=== PATIENT | male | born 1945 | race Caucasian/White ===

== ENCOUNTER 2019-03-20 12:10 | Emergency (ER) | payer MEDICARE ==
[~2019-03-20] VITALS: Ht 185.4 cm; Wt 132.7 kg
[2019-03-20] MEDS ORDERED: normal saline 1000ML IV soln IVB ONE (13:30)
[2019-03-20] MEDS ORDERED: ondansetron/PF 4mg/2ml inj IV ONE (13:30)
[2019-03-20] MEDS ORDERED: morphine 4 MG/ML inj SYRINge IV PRN (13:30)
[2019-03-20 14:27] LABS: BASOPHILS # (AUTO) 0.1 X10'3 (0-0.2); BASOPHILS % (AUTO) 0.4 % (0-1); EOSINOPHILS # (AUTO) 0.2 X10'3 (0-0.9); EOSINOPHILS % (AUTO) 1.3 % (0-6); HEMATOCRIT 43.8 % (42.0-52.0); HEMOGLOBIN 14.7 g/dl (14.0-17.9); LYMPHOCYTES # (AUTO) 2.9 X10'3 (1.1-4.8); LYMPHOCYTES % (AUTO) 18.2 % (21-51); MEAN CORPUSCULAR HEMOGLOBIN 29.2 PG (27.0-31.0); MEAN CORPUSCULAR HGB CONC 33.6 g/dL (33.0-36.5); MONOCYTES # (AUTO) 1.4 X10'3 (0-0.9); MONOCYTES % (AUTO) 9.1 % (2-12); NEUTROPHILS # (AUTO) 11.1 X10'3 (1.8-7.7); PLATELET COUNT 212 X10'3 (140-440); RED BLOOD COUNT 5.04 X10'6 (4.70-6.10); RED CELL DISTRIBUTION WIDTH 14.5 % (11.5-14.5); WHITE BLOOD COUNT 15.7 X10'3 (4.5-11.0)
[2019-03-20 14:27] LABS: CLARITY,URINE CLEAR (Clear); COLOR,URINE YELLOW (Yellow); GLUCOSE, URINE NEGATIVE (Neg); KETONES,URINE NEGATIVE (Neg); LEUKOCYTE ESTERASE ,URINE NEGATIVE (Neg); NITRITES, URINE NEGATIVE (Neg); OCCULT BLOOD,URINE LARGE (Neg); PH,URINE 5.5 (4.8-8.0); PROTEIN,URINE NEGATIVE (Neg); UROBILINOGEN,URINE 0.2 E.U/dL (0.2-1.0)
[2019-03-20 14:28] LABS: UA COLLECTION TYPE CLN CATCH MIDSTREAM
[2019-03-20 14:39] LABS: ALANINE AMINOTRANSFERASE 20 U/L (12-78); ALBUMIN 3.9 G/DL (3.4-5.0); ALBUMIN/GLOBULIN RATIO 1.1 (1.1-1.5); ALKALINE PHOSPHATASE 69 IU/L (46-116); ANION GAP 12 (8-16); ASPARTATE AMINO TRANSFERASE 22 U/L (10-37); BILIRUBIN,TOTAL 0.4 MG/DL (0.1-1.0); BLOOD UREA NITROGEN 14 MG/DL (7-18); BUN/CREATININE RATIO 10.5 (5.4-32.0); CALCIUM 8.7 MG/DL (8.5-10.1); CHLORIDE 106 MMOL/L (99-107); CREATININE 1.33 MG/DL (0.60-1.10); GLUCOSE 98 MG/DL (70-104); LIPASE 61 U/L (73-393); POTASSIUM 3.9 MMOL/L (3.5-5.1); SODIUM 141 MMOL/L (135-145); TOTAL PROTEIN 7.4 G/DL (6.4-8.2); eGFR 53 ML/MIN
[2019-03-20 14:48] LABS: BACTERIA,URINE FEW /HPF (Neg); SQUAMOUS EPITHELIAL CELL,UR NONE SEEN /LPF (FEW); WBC,URINE 0-4 /HPF (0-4)
[2019-03-20] MEDS ORDERED: ketorolac tromethamine 15mg/ml inj. IV ONE (14:50)
[2019-03-20] MEDS ORDERED: HYDR-4384 PO (15:31)
[2019-03-20] MEDS ORDERED: FLO0.4C PO (15:31)
[2019-03-20 15:58] VITALS: BP 162/84
== END 2019-03-20 16:02 | disposition home or self-care (01) ==
LOC: ER 12:11
DX: N20.0 Calculus of kidney (principal); R19.7 Diarrhea, unspecified; Z79.899 Other long term (current) drug therapy
CPT/HCPCS: 36415; 74176; 80053; 81001; 83690; 85025; 96361; 96374; 96375; 99284; J1885; J2270; J2405; J7030

== ENCOUNTER 2019-06-30 17:04 | Emergency (ER) | payer MEDICARE ==
[~2019-06-30] VITALS: Ht 185.4 cm; Wt 122.7 kg
[2019-06-30] MEDS ORDERED: ketorolac trometh. 30mg/ml inj. IV ONE (17:15)
[2019-06-30] MEDS ORDERED: normal saline 1000ML IV soln IVB ONE (17:15)
[2019-06-30] MEDS ORDERED: ondansetron/PF 4mg/2ml inj IV ONE (17:15)
[2019-06-30 17:27] LABS: CLARITY,URINE CLEAR (Clear); COLOR,URINE YELLOW (Yellow); GLUCOSE, URINE NEGATIVE (Neg); KETONES,URINE 15 mg/dl (Neg); LEUKOCYTE ESTERASE ,URINE NEGATIVE (Neg); NITRITES, URINE NEGATIVE (Neg); OCCULT BLOOD,URINE LARGE (Neg); PROTEIN,URINE 100 mg/dl (Neg); UROBILINOGEN,URINE 0.2 E.U/dL (0.2-1.0)
[2019-06-30 17:28] LABS: UA COLLECTION TYPE VOIDED
[2019-06-30 17:32] LABS: BACTERIA,URINE NONE SEEN /HPF (Neg); MUCUS STRANDS FEW /LPF (Neg); RBC,URINE 0-2 /HPF (0-2); SQUAMOUS EPITHELIAL CELL,UR FEW /LPF (FEW); URIC ACID CRYSTALS 1+ /HPF (NEGATIVE); WBC,URINE 0-4 /HPF (0-4)
[2019-06-30] MEDS: morphine 4 MG/ML inj SYRINge IV PRN ×2 (17:42→18:12)
[2019-06-30 17:43] LABS: BASOPHILS % (AUTO) 0.3 % (0-1); EOSINOPHILS # (AUTO) 0.1 X10'3 (0-0.9); EOSINOPHILS % (AUTO) 0.6 % (0-6); HEMATOCRIT 46.4 % (42.0-52.0); HEMOGLOBIN 15.1 g/dl (14.0-17.9); LYMPHOCYTES # (AUTO) 1.3 X10'3 (1.1-4.8); LYMPHOCYTES % (AUTO) 9.6 % (21-51); MEAN CORPUSCULAR HEMOGLOBIN 28.5 PG (27.0-31.0); MEAN CORPUSCULAR HGB CONC 32.4 g/dL (33.0-36.5); MEAN CORPUSCULAR VOLUME 87.9 FL (78-98); MEAN PLATELET VOLUME 10.3 FL (7.4-10.4); MONOCYTES # (AUTO) 1.2 X10'3 (0-0.9); MONOCYTES % (AUTO) 8.4 % (2-12); NEUTROPHILS % (AUTO) 81.1 % (42-75); PLATELET COUNT 189 X10'3 (140-440); RED BLOOD COUNT 5.28 X10'6 (4.70-6.10); RED CELL DISTRIBUTION WIDTH 14.8 % (11.5-14.5); WHITE BLOOD COUNT 13.6 X10'3 (4.5-11.0)
[2019-06-30 17:58] LABS: ALANINE AMINOTRANSFERASE 25 U/L (12-78); ALBUMIN 4.1 G/DL (3.4-5.0); ALBUMIN/GLOBULIN RATIO 1.1 (1.1-1.5); ALKALINE PHOSPHATASE 74 IU/L (46-116); ANION GAP 12 (8-16); ASPARTATE AMINO TRANSFERASE 22 U/L (10-37); BILIRUBIN,TOTAL 0.5 MG/DL (0.1-1.0); BLOOD UREA NITROGEN 26 MG/DL (7-18); BUN/CREATININE RATIO 16.6 (5.4-32.0); CALCIUM 9.2 MG/DL (8.5-10.1); CHLORIDE 106 MMOL/L (99-107); CREATININE 1.57 MG/DL (0.60-1.10); GLUCOSE 128 MG/DL (70-104); SODIUM 141 MMOL/L (135-145); TOTAL PROTEIN 7.8 G/DL (6.4-8.2); eGFR 44 ML/MIN
[2019-06-30] MEDS ORDERED: FLO0.4C PO (18:21)
[2019-06-30] MEDS ORDERED: ONDA4TAB12 PO (18:21)
[2019-06-30] MEDS ORDERED: HYDR-3965 PO (18:21)
[2019-06-30 18:29] VITALS: BP 162/86
== END 2019-06-30 18:35 | disposition home or self-care (01) ==
LOC: ER 17:04
DX: N20.0 Calculus of kidney (principal); F17.210 Nicotine dependence, cigarettes, uncomplicated; Z87.442 Personal history of urinary calculi; Z79.899 Other long term (current) drug therapy
CPT/HCPCS: 36415; 74176; 80053; 81001; 85025; 96374; 96375; 99284; J1885; J2270; J2405; J7030

== ENCOUNTER 2019-08-26 11:14 | Emergency (ER) | payer MEDICARE ==
[~2019-08-26] VITALS: Ht 185.4 cm; Wt 121.2 kg
[~2019-08-26 11:14] MED LIST: ONDA4TAB12 PO
[2019-08-26 11:19] VITALS: BP 151/70
[2019-08-26] MEDS ORDERED: ondansetron/PF 4mg/2ml inj IV ONE (11:40)
[2019-08-26] MEDS ORDERED: normal saline 1000ML IV soln IVB ONE (11:40)
[2019-08-26] MEDS ORDERED: morphine 4 MG/ML inj SYRINge IV ONE ×3 (11:40→13:55)
[2019-08-26 12:09] LABS: BASOPHILS # (AUTO) 0.1 X10'3 (0-0.2); BASOPHILS % (AUTO) 0.4 % (0-1); EOSINOPHILS # (AUTO) 0.1 X10'3 (0-0.9); EOSINOPHILS % (AUTO) 1.2 % (0-6); HEMATOCRIT 39.7 % (42.0-52.0); LYMPHOCYTES # (AUTO) 1.3 X10'3 (1.1-4.8); LYMPHOCYTES % (AUTO) 10.3 % (21-51); MEAN CORPUSCULAR HEMOGLOBIN 28.7 PG (27.0-31.0); MEAN CORPUSCULAR HGB CONC 32.7 g/dL (33.0-36.5); MEAN CORPUSCULAR VOLUME 87.9 FL (78-98); MEAN PLATELET VOLUME 10.5 FL (7.4-10.4); MONOCYTES % (AUTO) 8.1 % (2-12); NEUTROPHILS # (AUTO) 9.8 X10'3 (1.8-7.7); PLATELET COUNT 182 X10'3 (140-440); RED BLOOD COUNT 4.52 X10'6 (4.70-6.10); RED CELL DISTRIBUTION WIDTH 15.4 % (11.5-14.5); WHITE BLOOD COUNT 12.3 X10'3 (4.5-11.0)
[2019-08-26 12:19] LABS: ALANINE AMINOTRANSFERASE 21 U/L (12-78); ALBUMIN 3.5 G/DL (3.4-5.0); ALBUMIN/GLOBULIN RATIO 1.1 (1.1-1.5); ALKALINE PHOSPHATASE 65 IU/L (46-116); ANION GAP 11 (8-16); ASPARTATE AMINO TRANSFERASE 18 U/L (10-37); BILIRUBIN,TOTAL 0.4 MG/DL (0.1-1.0); BLOOD UREA NITROGEN 19 MG/DL (7-18); BUN/CREATININE RATIO 14.8 (5.4-32.0); CALCIUM 8.7 MG/DL (8.5-10.1); CHLORIDE 108 MMOL/L (99-107); CREATININE 1.28 MG/DL (0.60-1.10); GLUCOSE 120 MG/DL (70-104); POTASSIUM 3.6 MMOL/L (3.5-5.1); SODIUM 143 MMOL/L (135-145); TOTAL CARBON DIOXIDE 24.2 MMOL/L (24-32); TOTAL PROTEIN 6.7 G/DL (6.4-8.2); eGFR 55 ML/MIN
[2019-08-26 12:38] LABS: CLARITY,URINE SLIGHTLY CLOUDY (Clear); COLOR,URINE YELLOW (Yellow); GLUCOSE, URINE NEGATIVE (Neg); KETONES,URINE TRACE mg/dl (Neg); LEUKOCYTE ESTERASE ,URINE NEGATIVE (Neg); NITRITES, URINE NEGATIVE (Neg); OCCULT BLOOD,URINE LARGE (Neg); PROTEIN,URINE 30 mg/dl (Neg); UROBILINOGEN,URINE 0.2 E.U/dL (0.2-1.0)
[2019-08-26 12:39] LABS: UA COLLECTION TYPE CLN CATCH MIDSTREAM
[2019-08-26 12:46] LABS: BACTERIA,URINE FEW /HPF (Neg); COARSE GRANULAR CAST 0-3 /LPF (NEGATIVE); HYALINE CASTS 0-3 /LPF (NEGATIVE); MUCUS STRANDS MODERATE /LPF (Neg); SQUAMOUS EPITHELIAL CELL,UR NONE SEEN /LPF (FEW); TRANSITIONAL EPI CELLS,URINE FEW /HPF; URIC ACID CRYSTALS 3+ /HPF (NEGATIVE); WBC,URINE 0-4 /HPF (0-4)
[2019-08-26] MEDS ORDERED: ketorolac tromethamine 15mg/ml inj. IV ONE (13:55)
== END 2019-08-26 15:36 | disposition home or self-care (01) ==
LOC: ER 11:15
DX: N20.0 Calculus of kidney (principal); Z79.899 Other long term (current) drug therapy
CPT/HCPCS: 36415; 80053; 81001; 85025; 96374; 96375; 96376; 99284; J1885; J2270; J2405; J7030

== ENCOUNTER 2019-11-28 19:03 | Emergency (ER) | payer MEDICARE ==
[~2019-11-28] VITALS: Ht 185.4 cm; Wt 111.4 kg
[2019-11-28 19:31] LABS: BASOPHILS # (AUTO) 0.1 X10'3 (0-0.2); BASOPHILS % (AUTO) 0.6 % (0-1); EOSINOPHILS # (AUTO) 0.3 X10'3 (0-0.9); EOSINOPHILS % (AUTO) 2.6 % (0-6); HEMATOCRIT 41.2 % (42.0-52.0); HEMOGLOBIN 13.6 g/dl (14.0-17.9); LYMPHOCYTES % (AUTO) 17.8 % (21-51); MEAN CORPUSCULAR HEMOGLOBIN 29.2 PG (27.0-31.0); MEAN CORPUSCULAR VOLUME 88.4 FL (78-98); MEAN PLATELET VOLUME 10.5 FL (7.4-10.4); MONOCYTES # (AUTO) 1.2 X10'3 (0-0.9); MONOCYTES % (AUTO) 10.3 % (2-12); NEUTROPHILS # (AUTO) 7.8 X10'3 (1.8-7.7); NEUTROPHILS % (AUTO) 68.7 % (42-75); PLATELET COUNT 177 X10'3 (140-440); RED BLOOD COUNT 4.66 X10'6 (4.70-6.10); RED CELL DISTRIBUTION WIDTH 15.6 % (11.5-14.5); WHITE BLOOD COUNT 11.4 X10'3 (4.5-11.0)
[2019-11-28 19:32] LABS: CLARITY,URINE CLEAR (Clear); COLOR,URINE YELLOW (Yellow); GLUCOSE, URINE NEGATIVE (Neg); KETONES,URINE NEGATIVE (Neg); LEUKOCYTE ESTERASE ,URINE NEGATIVE (Neg); NITRITES, URINE NEGATIVE (Neg); OCCULT BLOOD,URINE MODERATE (Neg); PROTEIN,URINE 30 mg/dl (Neg); UROBILINOGEN,URINE 0.2 E.U/dL (0.2-1.0)
[2019-11-28] MEDS ORDERED: ondansetron/PF 4mg/2ml inj IV ONE (19:35)
[2019-11-28] MEDS ORDERED: ketorolac trometh. 30mg/ml inj. IV ONE (19:35)
[2019-11-28] MEDS ORDERED: morphine 4 MG/ML inj SYRINge IV ONE (19:40)
[2019-11-28 19:41] LABS: UA COLLECTION TYPE CLN CATCH MIDSTREAM
[2019-11-28 19:44] LABS: ALANINE AMINOTRANSFERASE 26 U/L (12-78); ALBUMIN/GLOBULIN RATIO 1.2 (1.1-1.5); ALKALINE PHOSPHATASE 72 IU/L (46-116); ANION GAP 9 (8-16); ASPARTATE AMINO TRANSFERASE 17 U/L (10-37); BILIRUBIN,TOTAL 0.4 MG/DL (0.1-1.0); BLOOD UREA NITROGEN 24 MG/DL (7-18); BUN/CREATININE RATIO 21.4 (5.4-32.0); CALCIUM 9.3 MG/DL (8.5-10.1); CHLORIDE 105 MMOL/L (99-107); CREATININE 1.12 MG/DL (0.60-1.10); GLUCOSE 129 MG/DL (70-104); POTASSIUM 3.9 MMOL/L (3.5-5.1); SODIUM 139 MMOL/L (135-145); TOTAL CARBON DIOXIDE 24.7 MMOL/L (24-32); TOTAL PROTEIN 7.4 G/DL (6.4-8.2); eGFR 64 ML/MIN
[2019-11-28 19:45] LABS: LIPASE 66 U/L (73-393)
[2019-11-28 19:53] LABS: SQUAMOUS EPITHELIAL CELL,UR FEW /LPF (FEW)
[2019-11-28 19:58] LABS: MUCUS STRANDS MODERATE /LPF (Neg); URIC ACID CRYSTALS 3+ /HPF (NEGATIVE); WBC,URINE 0-4 /HPF (0-4)
[2019-11-28 19:59] LABS: BACTERIA,URINE FEW /HPF (Neg)
[2019-11-28] MEDS ORDERED: HYDR-4353 PO (20:29)
[2019-11-28] MEDS ORDERED: ONDA4TAB6 PO (20:29)
[2019-11-28] MEDS ORDERED: KETO10TA2 PO (20:29)
[2019-11-28] MEDS ORDERED: TADA20TA PO (20:29)
[2019-11-28 21:07] VITALS: BP 169/98
== END 2019-11-28 21:10 | disposition home or self-care (01) ==
LOC: ER 19:03
DX: N18.9 Chronic kidney disease, unspecified (principal); N20.0 Calculus of kidney; N13.4 Hydroureter; N13.39 Other hydronephrosis; Z79.899 Other long term (current) drug therapy
CPT/HCPCS: 36415; 74176; 80053; 81001; 83690; 85025; 96374; 96375; 99284; J1885; J2270; J2405

== ENCOUNTER → 2020-11-19 | Day surgery (SDC) | payer MEDICARE ==
[2020-11-13 15:49] LABS: BASOPHILS # (AUTO) 0.1 X10'3 (0-0.2); BASOPHILS % (AUTO) 0.5 % (0-1); EOSINOPHILS # (AUTO) 0.5 X10'3 (0-0.9); EOSINOPHILS % (AUTO) 4.5 % (0-6); LYMPHOCYTES # (AUTO) 2.7 X10'3 (1.1-4.8); LYMPHOCYTES % (AUTO) 23.6 % (21-51); MEAN CORPUSCULAR HEMOGLOBIN 29.8 PG (27.0-31.0); MEAN CORPUSCULAR HGB CONC 32.7 g/dL (33.0-36.5); MEAN CORPUSCULAR VOLUME 91.1 FL (78-98); MONOCYTES # (AUTO) 1.1 X10'3 (0-0.9); MONOCYTES % (AUTO) 9.7 % (2-12); NEUTROPHILS % (AUTO) 61.7 % (42-75); PRE OP HEMATOCRIT 42.5 % (42.0-52.0); PRE OP HEMOGLOBIN 13.9 g/dL (14.0-17.9); PRE OP PLATELET COUNT 210 X10'3 (140-440); RED BLOOD COUNT 4.66 X10'6 (4.70-6.10); RED CELL DISTRIBUTION WIDTH 14.3 % (11.5-14.5)
[2020-11-13 16:01] LABS: ALBUMIN 3.7 G/DL (3.4-5.0); ALBUMIN/GLOBULIN RATIO 1.1 (1.1-1.5); ALKALINE PHOSPHATASE 74 IU/L (46-116); BLOOD UREA NITROGEN 23 MG/DL (7-18); CALCIUM 8.5 MG/DL (8.5-10.1); CHLORIDE 111 MMOL/L (99-107); CREATININE 1.15 MG/DL (0.60-1.10); PRE OP ALT 25 U/L (30-65); PRE OP ANION GAP 6 (8-16); PRE OP AST 17 U/L (10-37); PRE OP BILIRUB, TOTAL 0.3 MG/DL (0.0-1.0); PRE OP GLUCOSE 93 MG/DL (70-104); PRE OP POTASSIUM 4.1 MMOL/L (3.4-5.1); PRE OP SODIUM 144 MMOL/L (135-145); TOTAL CARBON DIOXIDE 26.6 MMOL/L (24-32); eGFR 62 ML/MIN
[2020-11-13 16:16] LABS: CLARITY,URINE CLEAR (Clear); COLOR,URINE YELLOW (Yellow); UA COLLECTION TYPE CLN CATCH MIDSTREAM
[2020-11-13 16:17] LABS: GLUCOSE, URINE NEGATIVE (Neg); KETONES,URINE NEGATIVE (Neg); NITRITES, URINE NEGATIVE (Neg); OCCULT BLOOD,URINE NEGATIVE (Neg); PH,URINE 6.5 (4.8-8.0); PROTEIN,URINE TRACE mg/dl (Neg)
[2020-11-13 16:18] LABS: LEUKOCYTE ESTERASE ,URINE NEGATIVE (Neg); UROBILINOGEN,URINE 0.2 E.U/dL (0.2-1.0)
[2020-11-13 16:29] LABS: HYALINE CASTS 0-3 /LPF (NEGATIVE); MUCUS STRANDS FEW /LPF (Neg); SQUAMOUS EPITHELIAL CELL,UR FEW /LPF (FEW)
[2020-11-13 16:30] LABS: BACTERIA,URINE NONE SEEN /HPF (Neg); RBC,URINE 0-2 /HPF (0-2); TRANSITIONAL EPI CELLS,URINE FEW /HPF; WBC,URINE 0-4 /HPF (0-4)
[~2020-11-19] VITALS: Ht 185.4 cm; Wt 123.4 kg
[2020-11-19] VITALS (12 sets, daily range): BP systolic 127–208; BP diastolic 66–103
[~2020-11-19] MED LIST changes: +BUPIVAcaine/PF 2.5mg/ml (0.25%) 10ml vial ONE; +CLOP75TA34 PO; +LISI20TA28 PO; -ONDA4TAB12 PO; +ROSU40TA PO; +acetaminophen 1,000mg/100ml IV 100 ML IV ONE; +ceFAZolin inj. 3,000 MG in normal saline 100ml IV soln 100 ML IV ONE; +dexamethasone sod phosphate 4mg/ml inj. ONE; +famotidine 20mg tablet PO ONE; +fentaNYL/PF 50MCG/1 ML 2ML syringe ONE; +hydrALAZINE 20mg/ml inj. IV PRN; +labetalol 20mg/4ml (5mg/ml) syringe IV PRN; +meperidine/PF 25mg/ml syringe IV PRN; +midazolam 1 mg/ML 2ml injection ONE; +morphine 2 MG/ML inj. syringe IV PRN; +morphine 4 MG/ML inj SYRINge IV PRN; +ondansetron/PF 4mg/2ml inj IV PRN; +ondansetron/PF 4mg/2ml inj ONE; +proCHLORperazine 10 MG/2 ml inj IV PRN; +propofol inj 20 ML IV ONE; +ringers solution, lacted 1,000 ML IV SCH; +rocuronium 10mg/ml inj IV ONE; +sevoflurane 250ml liquid IH ONE; +sugammadex 200mg/2ml injection IV ONE
--- NOTE | 2020-11-19 10:07 | NUR ---
PT. STATES HE TAKES HIS LISINOPRIL ONLY WHEN HE NEEDS IT.
--- NOTE | 2020-11-19 15:25 | NUR ---
Received from OR via [facility] , accompanied by Anesthesiologist LOIDA and report given by Anesthesiolgist. PATIENT WITH 20G PIV IN RIGHT UE RUNNING LR AT 100. 10L MASK ON WITH 100% SATRUATIONS. 3 ABDOMINAL LAP SITES PRESENT AND ARE CDI. Addendum: 11/19/20 at 1536 by Adeel Estrella RN, RN Amended: Links added.
[2020-11-19] MEDS: meperidine/PF 25mg/ml syringe IV PRN ×3 (15:41→16:15)
--- NOTE | 2020-11-19 17:49 | NUR ---
BLADDER SCAN REVEAL 500+ CC OF URINE. PATIENT WISHES TO ATTEMPT VOIDING AGAIN BEFORE CATHETER IS PLACED. Addendum: 11/19/20 at 1844 by Adeel Estrella RN, RN Amended: Links added.
--- NOTE | 2020-11-19 18:40 | NUR ---
ALL DC INSTRUCTIONS COVERED WITH PATIENT AND SPOUSE. ALL QUESTIONS ANSWERED. VSS. DENIES NEED FOR FURTHER PAIN MEDS. PATIENT WTIH BERGER CATHETER PLACED WITH 600 URINE RETURNED. CHANGED OVER TO LEG BAG. INSTUCTIONS GIVEN TO SPOUSE AND PATIENT WELL INSTRUCTIONS TO KEEP CPAP ON UNLESS WALKING OR EATING FOR 24 HOURS. EXPLAINED RATIONALE. IV TAKEN OUT WITHOUT COMPLICATIONS. TAKEN OUT VIA WHEELCHAIR TO PERSONAL VEHICLE. Addendum: 11/19/20 at 1843 by Adeel Estrella RN, RN Amended: Links added.
== END | disposition home or self-care (01) ==
LOC: PAS 09:12
PROVIDERS: ATTEND Surgery
DX: K40.91 Unilateral inguinal hernia, without obstruction or gangrene, recurrent (principal); I10 Essential (primary) hypertension; F17.210 Nicotine dependence, cigarettes, uncomplicated; G47.30 Sleep apnea, unspecified; I47.1 Supraventricular tachycardia; E78.5 Hyperlipidemia, unspecified; K21.9 Gastro-esophageal reflux disease without esophagitis; Z20.822 Contact with and (suspected) exposure to COVID-19; Z79.899 Other long term (current) drug therapy; Z79.01 Long term (current) use of anticoagulants; Z72.89 Other problems related to lifestyle; Z95.820 Peripheral vascular angioplasty status with implants and grafts; Z87.442 Personal history of urinary calculi
CPT/HCPCS: 36415; 49651; 80053; 81001; 82948; 85025; 93005; C1781; C9399; J0131; J0360; J0690; J1100; J2175; J2250; J2270; J2405; J2704; J3010; J3490; J7120; U0003; U0005; Z7506; Z7508; Z7512; A4215; A4618

== ENCOUNTER 2022-04-19 16:53 | Emergency (ER) | payer MEDICARE ==
[~2022-04-19] VITALS: Ht 185.4 cm; Wt 126.4 kg
[~2022-04-19 16:53] MED LIST changes: -BUPIVAcaine/PF 2.5mg/ml (0.25%) 10ml vial ONE; -acetaminophen 1,000mg/100ml IV 100 ML IV ONE; -ceFAZolin inj. 3,000 MG in normal saline 100ml IV soln 100 ML IV ONE; -dexamethasone sod phosphate 4mg/ml inj. ONE; -famotidine 20mg tablet PO ONE; -fentaNYL/PF 50MCG/1 ML 2ML syringe ONE; -hydrALAZINE 20mg/ml inj. IV PRN; -labetalol 20mg/4ml (5mg/ml) syringe IV PRN; -meperidine/PF 25mg/ml syringe IV PRN; -midazolam 1 mg/ML 2ml injection ONE; -morphine 2 MG/ML inj. syringe IV PRN; -morphine 4 MG/ML inj SYRINge IV PRN; -ondansetron/PF 4mg/2ml inj IV PRN; -ondansetron/PF 4mg/2ml inj ONE; -proCHLORperazine 10 MG/2 ml inj IV PRN; -propofol inj 20 ML IV ONE; -ringers solution, lacted 1,000 ML IV SCH; -rocuronium 10mg/ml inj IV ONE; -sevoflurane 250ml liquid IH ONE; -sugammadex 200mg/2ml injection IV ONE
[2022-04-19 17:43] LABS: BASOPHILS # (AUTO) 0.1 X10'3 (0-0.2); BASOPHILS % (AUTO) 0.4 % (0-1); EOSINOPHILS # (AUTO) 0.6 X10'3 (0-0.9); EOSINOPHILS % (AUTO) 4.1 % (0-6); HEMATOCRIT 44.3 % (42.0-52.0); HEMOGLOBIN 14.7 g/dl (14.0-17.9); LYMPHOCYTES # (AUTO) 3.2 X10'3 (1.1-4.8); LYMPHOCYTES % (AUTO) 22.8 % (21-51); MEAN CORPUSCULAR HEMOGLOBIN 29.1 PG (27.0-31.0); MEAN CORPUSCULAR HGB CONC 33.1 g/dL (33.0-36.5); MEAN CORPUSCULAR VOLUME 87.9 FL (78-98); MEAN PLATELET VOLUME 9.3 FL (7.4-10.4); MONOCYTES # (AUTO) 1.3 X10'3 (0-0.9); NEUTROPHILS % (AUTO) 63.7 % (42-75); PLATELET COUNT 219 X10'3 (140-440); RED BLOOD COUNT 5.05 X10'6 (4.70-6.10); RED CELL DISTRIBUTION WIDTH 14.6 % (11.5-14.5); WHITE BLOOD COUNT 14.1 X10'3 (4.5-11.0)
[2022-04-19 17:51] LABS: CLARITY,URINE CLEAR (Clear); COLOR,URINE YELLOW (Yellow); GLUCOSE, URINE NEGATIVE (Neg); KETONES,URINE NEGATIVE (Neg); LEUKOCYTE ESTERASE ,URINE NEGATIVE (Neg); NITRITES, URINE NEGATIVE (Neg); OCCULT BLOOD,URINE SMALL (Neg); PROTEIN,URINE TRACE mg/dl (Neg); UROBILINOGEN,URINE 0.2 E.U/dL (0.2-1.0)
[2022-04-19 17:54] LABS: ALANINE AMINOTRANSFERASE 20 U/L (12-78); ALBUMIN 3.9 G/DL (3.4-5.0); ALBUMIN/GLOBULIN RATIO 1.1 (1.1-1.5); ALKALINE PHOSPHATASE 61 IU/L (46-116); ANION GAP 8 (8-16); ASPARTATE AMINO TRANSFERASE 23 U/L (10-37); BILIRUBIN,TOTAL 0.5 MG/DL (0.1-1.0); BLOOD UREA NITROGEN 20 MG/DL (7-18); BUN/CREATININE RATIO 14.6 (5.4-32.0); CALCIUM 9.3 MG/DL (8.5-10.1); CHLORIDE 107 MMOL/L (99-107); CREATININE 1.37 MG/DL (0.60-1.10); GLUCOSE 129 MG/DL (70-104); LIPASE 80 U/L (73-393); POTASSIUM 3.9 MMOL/L (3.5-5.1); SODIUM 142 MMOL/L (135-145); TOTAL CARBON DIOXIDE 27.4 MMOL/L (24-32); TOTAL PROTEIN 7.6 G/DL (6.4-8.2); eGFR 51 ML/MIN
[2022-04-19 17:59] LABS: UA COLLECTION TYPE VOIDED
[2022-04-19 18:05] LABS: BACTERIA,URINE NONE SEEN /HPF (Neg); WBC,URINE NONE SEEN /HPF (0-4)
[2022-04-19 18:06] LABS: SQUAMOUS EPITHELIAL CELL,UR NONE SEEN /LPF (FEW)
[2022-04-19] MEDS ORDERED: ondansetron/PF 4mg/2ml inj IV ONE (23:20)
[2022-04-19] MEDS ORDERED: ketorolac trometh. 30mg/ml inj. IV ONE (23:20)
[2022-04-19] MEDS ORDERED: HYDROcodone/acetaminophen 5mg/325mg tablet PO ONE (23:20)
[2022-04-19] MEDS ORDERED: tamsulosin 0.4mg capsule PO ONE (23:40)
[2022-04-20] MEDS ORDERED: morphine 4 MG/ML inj SYRINge IV ONE (00:15)
[2022-04-20 00:43] VITALS: BP 115/66
[2022-04-20] MEDS ORDERED: ONDA8TAB13 PO (01:09)
[2022-04-20] MEDS ORDERED: HYDR-3965 PO (01:09)
[2022-04-20] MEDS ORDERED: ondansetron 4mg rapidly disintigrating tab PO ONE (01:10)
[2022-04-20] MEDS ORDERED: HYDROcodone/acetaminophen 10/325mg tab PO ONE (01:10)
[2022-04-20] MEDS ORDERED: FLO0.4C PO (01:11)
--- NOTE | 2022-04-20 01:29 | NUR ---
IV DC'D PT BEING DISCHARGED DRESSING APPLIED
--- NOTE | 2022-04-20 01:32 | NUR ---
STONE FILTER GIVEN
[2022-04-20] MEDS ORDERED: tamsulosin 0.4mg capsule PO SCH (21:00)
== END 2022-04-20 01:33 | disposition home or self-care (01) ==
LOC: ER 16:54
DX: N20.0 Calculus of kidney (principal)
CPT/HCPCS: 36415; 80053; 81001; 83690; 85025; 96374; 96375; 99284; J1885; J2270; J2405

== ENCOUNTER 2022-11-07 11:29 | Emergency (ER) | payer MEDICARE ==
[~2022-11-07] VITALS: Ht 185.4 cm; Wt 130.0 kg
[~2022-11-07 11:29] MED LIST changes: +ONDA8TAB13 PO
[2022-11-07 11:43] VITALS: TEMP 98.4
[2022-11-07] MEDS ORDERED: normal saline 1000ML IV soln IVB ONE (13:20)
[2022-11-07] MEDS ORDERED: ondansetron/PF 4mg/2ml inj IV ONE (13:20)
[2022-11-07] MEDS ORDERED: morphine 4 MG/ML inj SYRINge IV ONE (13:20)
[2022-11-07 13:25] LABS: BASOPHILS # (AUTO) 0.1 X10'3 (0-0.2); BASOPHILS % (AUTO) 0.4 % (0-1); EOSINOPHILS # (AUTO) 0.4 X10'3 (0-0.9); EOSINOPHILS % (AUTO) 2.6 % (0-6); HEMATOCRIT 40.9 % (42.0-52.0); HEMOGLOBIN 13.4 g/dl (14.0-17.9); LYMPHOCYTES # (AUTO) 2.3 X10'3 (1.1-4.8); LYMPHOCYTES % (AUTO) 16.5 % (21-51); MEAN CORPUSCULAR HEMOGLOBIN 28.7 PG (27.0-31.0); MEAN CORPUSCULAR HGB CONC 32.6 g/dL (33.0-36.5); MEAN PLATELET VOLUME 9.8 FL (7.4-10.4); MONOCYTES # (AUTO) 1.6 X10'3 (0-0.9); MONOCYTES % (AUTO) 11.8 % (2-12); NEUTROPHILS # (AUTO) 9.4 X10'3 (1.8-7.7); NEUTROPHILS % (AUTO) 68.7 % (42-75); PLATELET COUNT 199 X10'3 (140-440); RED BLOOD COUNT 4.65 X10'6 (4.70-6.10); RED CELL DISTRIBUTION WIDTH 15.5 % (11.5-14.5); WHITE BLOOD COUNT 13.7 X10'3 (4.5-11.0)
[2022-11-07 13:28] LABS: ALANINE AMINOTRANSFERASE 18 U/L (12-78); ALBUMIN 3.3 G/DL (3.4-5.0); ALKALINE PHOSPHATASE 59 IU/L (46-116); ANION GAP 6 (8-16); ASPARTATE AMINO TRANSFERASE 21 U/L (10-37); BILIRUBIN,TOTAL 0.5 MG/DL (0.1-1.0); BLOOD UREA NITROGEN 22 MG/DL (7-18); BUN/CREATININE RATIO 14.7 (10.0-20.0); CALCIUM 8.9 MG/DL (8.5-10.1); CHLORIDE 103 MMOL/L (99-107); GLUCOSE 121 MG/DL (70-104); LIPASE < 50 U/L (73-393); POTASSIUM 4.1 MMOL/L (3.5-5.1); SODIUM 136 MMOL/L (135-145); TOTAL CARBON DIOXIDE 26.6 MMOL/L (24-32); TOTAL PROTEIN 6.6 G/DL (6.4-8.2); eCRCL 48 ML/MIN; eGFR 46 ML/MIN
[2022-11-07 14:04] LABS: BILIRUBIN,URINE NEGATIVE (Neg); CLARITY,URINE CLEAR (Clear); COLOR,URINE YELLOW (Yellow); GLUCOSE, URINE NEGATIVE (Neg); KETONES,URINE NEGATIVE (Neg); LEUKOCYTE ESTERASE ,URINE NEGATIVE (Neg); NITRITES, URINE NEGATIVE (Neg); OCCULT BLOOD,URINE SMALL (Neg); PH,URINE 5.5 (4.8-8.0); PROTEIN,URINE TRACE mg/dl (Neg); UROBILINOGEN,URINE 0.2 E.U/dL (0.2-1.0)
[2022-11-07 14:06] LABS: UA COLLECTION TYPE CLN CATCH MIDSTREAM
[2022-11-07 14:11] LABS: BACTERIA,URINE NONE SEEN /HPF (Neg); FINE GRANULAR CAST 0-3 /LPF (NEGATIVE); HYALINE CASTS 0-3 /LPF (NEGATIVE); MUCUS STRANDS NONE SEEN /LPF (Neg); SQUAMOUS EPITHELIAL CELL,UR NONE SEEN /LPF (FEW); WBC,URINE 0-4 /HPF (0-4)
[2022-11-07] MEDS ORDERED: OXYC-138 PO ×3 (14:19→18:11)
[2022-11-07] MEDS ORDERED: SILO8CAP2 PO ×3 (14:19→18:11)
[2022-11-07] MEDS ORDERED: ONDA4TAB12 PO ×3 (14:19→18:11)
[2022-11-07] MEDS ORDERED: morphine 2 MG/ML inj. syringe IV ONE (14:40)
[2022-11-07] MEDS ORDERED: normal saline 1000ml 1,000 ML IV ONE (15:20)
[2022-11-07] MEDS ORDERED: meperidine/PF 25mg/ml syringe IV ONE (15:40)
[2022-11-07] MEDS ORDERED: ketorolac trometh. 30mg/ml inj. IV ONE (16:00)
[2022-11-07] MEDS ORDERED: sildenafil citrate 20mg tablet PO ONE (16:00)
[2022-11-07] MEDS ORDERED: sildenafil citrate 20mg tablet PO SCH (16:00)
[2022-11-07 17:04] VITALS: BP 110/63; PULSE 65; O2SAT 93
[2022-11-07 17:26] VITALS: RESP 18
[2022-11-07] MEDS ORDERED: TADA5TAB2 PO ×3 (17:31→18:11)
== END 2022-11-07 18:22 | disposition home or self-care (01) ==
LOC: ER 11:29
DX: N13.30 Unspecified hydronephrosis (principal)
CPT/HCPCS: 36415; 74176; 80053; 81001; 83690; 84145; 85025; 96361; 96374; 96375; 96376; 99285; J1885; J2175; J2270; J2405; J7030